=== PATIENT | male | born 1975 | race Two or more races ===

== ENCOUNTER 2020-09-13 19:30 | Emergency (ER) | payer OTHER ==
[~2020-09-13] VITALS: Ht 182.9 cm; Wt 83.9 kg
[2020-09-13 22:34] VITALS: BP 143/89
== END 2020-09-14 00:08 | disposition home or self-care (01) ==
LOC: ER 19:30
DX: S31.113A Laceration without foreign body of abdominal wall, right lower quadrant without penetration into peritoneal cavity, initial encounter (principal); W26.0XXA Contact with knife, initial encounter; Y93.89 Activity, other specified; Y92.89 Other specified places as the place of occurrence of the external cause; Y99.8 Other external cause status
CPT/HCPCS: 12001; 74176